=== PATIENT | female | born 1960 | race Caucasian/White ===

== ENCOUNTER 2019-06-15 09:15 | Observation (INO) | payer OTHER ==
[~2019-06-15] VITALS: Ht 157.5 cm; Wt 69.8 kg
[~2019-06-15 09:15] MED LIST: ASPI325 PO; ASPI81CH PO; Ativan0.5 MG PO; ENAL10 PO; FENO160 PO; FISH1000 PO; HYDACE5 PO; HYDCHL25 PO; IBUP800 PO; MELA3 PO; NAPR550 PO; SENN187 PO; Zovirax800 MG PO; [UNRECOGNIZED DRUG - OTHER]
[2019-06-15] MEDS ORDERED: LORA2 PO (10:16)
[2019-06-15] MEDS ORDERED: METOPROLOL SUCC25 MG PO (10:16)
[2019-06-15] MEDS ORDERED: SERT50 PO (10:16)
[2019-06-15] MEDS ORDERED: ATOR40TA PO (10:17)
--- NOTE | 2019-06-15 15:55 | NUR ---
ARRIVED TO ICU, ROOM 2, VIA BED FROM [facility]; PCU STATUS. NO BEDS AVAILABLE IN PCU AND PATIENT REQUIRES CARDIAC MONITORING AND MANAGEMENT OF TR BAND. PCI TO CORONARY VESSEL BY DR. KEANE; TO HAVE FURTHER PROCEDURE IN A FEW WEEKS FOR STENTING OF ANOTHER CORONARY VESSEL. OVERALL STATUS GOOD; SOME MILD CHEST PRESSURE WHICH HAS EASED FROM ER VISIT AND [facility]; CURRENTLY 03/11. ADULT SON AND DAUGHTER VISITING AND VERY SUPPORTIVE. LUNGS CLEAR AND NO OXYGEN INDICATE. TR BAND SITE INTACT WITH CUFF INFLATED WITH 14CC OF AIR; DRESSING DRY/INTACT AND NO S/SX'S OF HEMATOMA. ARMBOARD ALSO IN PLACE TO PREVENT MOVEMENT OF WRIST.
--- NOTE | 2019-06-15 16:10 | NUR ---
TR BAND SITE UNCHANGED; VSS.
--- NOTE | 2019-06-15 16:30 | NUR ---
TR BAND SITE INTACT; GOOD RADIAL PULSE; [place].
--- NOTE | 2019-06-15 16:45 | NUR ---
TR BAND SITE UNCHANGED; WILL BEGIN RELEASING AIR, FROM CUFF, IN ABOUT AN HOUR. DR. KEANE HERE; EXPLAINED PROCEDURE TO PATIENT AND FAMILY AND DISCUSSED POC FOR OTHER CORONARY ARTERY THAT REQUIRES STENTING (IN ABOUT 2 WEEKS). PATIENT CONT. WITH 4/10 CHEST PRESSURE; DR. KEANE AWARE AND INFORMED PATIENT IT IS RELATED TO THE PROCEDURE THAT WAS DONE.
--- NOTE | 2019-06-15 17:30 | NUR ---
T/C TO DR. PATEL TO GET PAIN MED ORDERS. HE GAVE ORDERS. RN INFORMED PHYSICIAN RE: BRADYCARDIA AND HE GAVE PARAMETERS TO FOLLOW IF HTN MEDS. ETC GIVEN. WANTS RN TO CONSULT HOSPITALIST FOR ANYTHING ELSE; STATES DR. KEANE WAS GOING TO PUT IN CONSULT BUT MUST HAVE FORGOTTEN.
--- NOTE | 2019-06-15 18:45 | NUR ---
SUMMARY: DR. EVERETT HERE FOR CONSULT; RN GAVE UPDATE ON STATUS ETC. RN AWAITING PHARMACY TO PROCESS PAIN MED. ORDERS; WILL HAVE NIGHT NURSE MEDICATE.TR BAND SITE UNCHANGED; RN STARTED RELEASING AIR FROM CUFF; 1-CC RELEASED AT 1720 AND THEN 2CC OF AIR RELEASED AROUND 1750; NO S/SX'S OF BLEEDING OR HEMATOMA. WILL HAVE NIGHT RN COMPLETED DEFLATION PROCESS. IVF OF NS CONT. AT 200ML/HR (TOTAL OF 1 LITER).
--- NOTE | 2019-06-15 20:00 | NUR ---
ASSUMED CARE OF PT, REPORT RCV'D FROM TONY CRAIG. PT ALERT AND ORIENTED SITTING IN BED GRIMACING IN PAIN. PT STATES THAT HER CHEST IS STILL HURTING AND THAT HER RIGHT RADIAL SITE AND RAC IV SITE BOTH HURT. PT STATES THAT CP IS UNCHANGED AND THAT SHE IS GOING TO NEED AN ADDITIONAL STENT PLACED IN [address] EVERETT @BEDSIDE DISCUSSING PAIN. UPON INSPECTION RAC IV INFILTRATED. PT TEARY AND REQUESTING PAIN MEDICATION. NEW IV STARTED AND PT MEDICATED PER EMAR WITH GOOD RELIEF. TR BAND ON RIGHT RADIAL SITE, C/D/I, NO HEMATOMA, DISTAL PULSES STRONG, NO COMPLAINT OF N/T. ALL VSS, SEE FULL SHIFT ASSESSMENT.
--- NOTE | 2019-06-16 03:00 | NUR ---
TR BAND OFF. NO HEMATOMA OR OOZING, SOFT NON-TENDER. CLEAR DRESSING AND ARM BOARD IN PLACE.
--- NOTE | 2019-06-16 06:01 | NUR ---
SHIFT SUMMARY NO ACUTE CHANGES OVERNIGHT. PT'S RIGHT RADIAL SITE REMAINS WITHOUT EVIDENCE OF HEMATOMA, PULSES ARE GOOD. PT CONTINUES TO HAVE INTERMITTENT CHEST PAIN THAT SHE DESCRIBES "SQUEEZING" SUBSTERNAL. PT REPORTS THAT THIS IS THE SAME PAIN THAT SHE HAS HAD SINCE COMING BACK FROM [facility], PT DISCUSSED PAIN WITH DR. AGUILA. VSS OVERNIGHT. SEE PREVIOUS SHIFT NOTES. WILL REPORT TO DAYSHIFT NURSE.
--- NOTE | 2019-06-16 07:30 | NUR ---
ASSUMED CARE: PT RESTING QUIETLY AT THIS TIME. DAUGHTER AT BEDSIDE. NO ACUTE NEEDS OR CONCERNS.
[2019-06-16 09:10] LABS: Albumin, Blood 3.3 g/dL (3.4-5.0); Anion Gap 4 mmol/L (6-16); Blood Urea Nitrogen 13 mg/dL (8-24); Bun/Creatinine Ratio 16.8 (12.0-20.0); CO2, Blood 30 mmol/L (21-32); Chloride, Blood 104 mmol/L (98-108); Creatinine, Blood 0.77 mg/dL (0.40-1.00); Glomerular Filtration Rate >60 (60-); Glucose, Blood 104 mg/dL (70-99); Phosphorus, Blood 3.1 mg/dL (2.5-4.9); Potassium, Blood 3.4 mmol/L (3.5-5.5); Sodium, Blood 138 mmol/L (136-145)
--- NOTE | 2019-06-16 10:46 | NUR ---
DR EDMOND AWARE OF PT'S POTASSIUM RESULT. SEE NEW ORDERS. STATES CARDIOLOGY IS TO FILL OUT DISCHARGE ORDERS. CALL TO DR PATEL. DR PATEL CAME TO SEE PT AND STATED THAT PT NEEDED TO WALK TO TEST TO SEE IF SYMPTOMATIC WITH ACTIVITY. 3 LAPS AROUND NURSES STATION WITH NO CP OR DIZZINESS. BACK IN BED NOW, DAUGHTER AT BEDSIDE.
[2019-06-16] MEDS ORDERED: TICA90TA PO (11:28)
--- NOTE | 2019-06-16 12:10 | NUR ---
PT DISCHARGED HOME. IV REMOVED THIS AM WNL. INSTRUCTIONS GIVEN TO PT AND DAUGHTER, DENIED FURTHER QUESTIONS. FOLLOW UP APPOINTMENT SET UP FOR PT AND PT AWARE OF DATE. DENIED FURTHER QUESTIONS OR CONCERNS. TRANSFERRED OUT VIA WHEEL CHAIR BY HOSPITAL STAFF
[2019-07-03] MEDS ORDERED: CLOP75 PO (13:34)
== END 2019-06-16 12:10 | disposition home or self-care (01) ==
LOC: MHTC 09:15 → ICUE 16:24 → MHTC 16:24 → ICUE 16:30
PROVIDERS: Internal Medicine; ADMIT Internal Medicine Cardiovascular Disease
PROC: 4A023N7 Measurement of Cardiac Sampling and Pressure, Left Heart, Percutaneous Approach (ICD-10-PCS; principal; 2019-06-15)
PROC: B211YZZ Fluoroscopy of Multiple Coronary Arteries using Other Contrast (ICD-10-PCS; 2019-06-15)
PROC: 027034Z Dilation of Coronary Artery, One Artery with Drug-eluting Intraluminal Device, Percutaneous Approach (ICD-10-PCS; 2019-06-16)
DX: I25.110 Atherosclerotic heart disease of native coronary artery with unstable angina pectoris (principal); E78.5 Hyperlipidemia, unspecified; F41.9 Anxiety disorder, unspecified; G47.33 Obstructive sleep apnea (adult) (pediatric); E66.9 Obesity, unspecified; E87.6 Hypokalemia; Z85.41 Personal history of malignant neoplasm of cervix uteri; Z85.118 Personal history of other malignant neoplasm of bronchus and lung; Z79.82 Long term (current) use of aspirin; Z79.899 Other long term (current) drug therapy
CPT/HCPCS: 36415; 80069; 85347; 93005; 93010; 93458; 96374; 96376; 99152; 99153; A9270; C1725; C1769; C1874; C1887; C1894; C9600; G0378; J0360; J0461; J1644; J2250; J2270; J3010; J3246; J7030; J7040; Q9967

== ENCOUNTER 2019-07-06 06:44 | Observation (INO) | payer OTHER ==
[~2019-07-06] VITALS: Ht 157.5 cm; Wt 72.0 kg
[~2019-07-06 06:44] MED LIST changes: +ATOR40TA PO; +CLOP75 PO; +LORA2 PO; +METOPROLOL SUCC25 MG PO; +SERT50 PO; +TICA90TA PO
--- NOTE | 2019-07-06 09:30 | NUR ---
PT BROUGHT BACK TO RECOVERY ROOM VIA RECLINER. REPORT FROM TONY NOEL. LARGE HEMATOMA NOTED TO RFA SPREADING TOWARDS ELBOW. SECOND TR BAND APPLIED, MANUAL PRESSURE AND MASSAGE DONE BY DR. ARCE. ICE APPLIED TO RFA WELL FOR 15 MINUTES. PT WAS MEDICATED BY TONY NOEL DURING THIS TIME FOR PAIN. SEE MAR FOR DOCUMENTATION. VSS. AGGRASTAT DRIP DISCONTINUED. US ORDERED TO VERIFY THAT HEMATOMA HAS DISCONTINUED PER DR. ARCE. PLAN IS FOR PT TO BE OBSERVED OVER NIGHT. WILL CONTINUE TO MONITOR.
--- NOTE | 2019-07-06 10:10 | NUR ---
RFA RE-EVALUATED PRIOR TO PT BEING TRANSFERED TO PCU. TWO TR BANDS REMAIN IN PLACE WITH 14-15 CC AIR IN BOTH. SITES ARE NOT OOZING OR ACTIVELY BLEEDING. RFA SOFT, MINIMAL TENDERNESS, HOWEVER, PT REPORTS THAT "IT FEELS MUCH BETTER THAN BEFORE" REPORTS PAIN LEVEL DECREASED FROM 10/10 TO 6/10.
--- NOTE | 2019-07-06 10:30 | NUR ---
ASSUMED CARE PT ALERT AND ORIENTED. VS STABLE. HR SHOWS [place] 40-60. BP STABLE. PT DENIES PAIN AT THIS TIME. [address] TO RIGHT RADIAL SITE. HEMATOMA NOTED FROM WRIST TO ELBOW. PT STATES IT LOOKS BETTER THAN IT DID IN THE [facility]ART CENTER. 14CC OF AIR IN EACH BAND. WILL CONTINUE TO MONITOR CLOSELY.
--- NOTE | 2019-07-06 18:08 | NUR ---
SHIFT SUMMARY BOTH TR BANDS HAVE BEEN REMOVED. HEMATOMA IS UNCHANGED SINCE INITIAL ASSESSMENT. VS REMAIN STABLE. PT COMPLAINED OF PAIN IN HER RIGHT FOREARM THAT WAS RELIEVED WITH MEDICATION ADMINISTRATION. PT ABLE TO AMBULATE TO BATHROOM NEEDED. PT EDUCATED ON RIGHT ARM RESTRICTIONS. WILL CONTINUE TO MONITOR AND REPORT TO ONCOMING RN. CALL LIGHT IN REACH.
--- NOTE | 2019-07-06 23:22 | NUR ---
Assumed care of pt at approx 1900 from TONY Larios. Pt with VSS. No apparent sign of distress, breathing easy and unlabored. Hematoma present on RFA, soft, painful. No active swelling or bleed noted. Pt alert and oriented, answers questions appropriately, able to make needs known. Pt denies chest pain, pressure, no SOB. See shift assessment for detailed systems assessment.
--- NOTE | 2019-07-07 04:32 | NUR ---
Shift Summary Pt with no acute changes this shift. R arm site remains with hematoma, access site clear from blood or new hematoma. VSS. denies chest pain or pressure. compliant with R arm restrictions. Pt able to make needs known, independant in room, uses call light appropriately. Alert and oriented. No changes on tele. Pt with anticipated D/C this AM. Will continue to monitor and provide care per orders until day RN assumes care.
--- NOTE | 2019-07-07 09:10 | NUR ---
pt laying in bed asking for pain med for her right fa hematomoa, a/ox3, pleasant and cooperative with care, follows commands well, lungs are clear t/o, resp even and unlabored, is currently on r/a, hrr, tele in place runing sr in the 70's, no edema noted, iv to right hand site is clear and patent, btx4, abd flat soft nontender, reports voiding without diff, skin c/w/d except right fa hematoma is brused and swollen, danette galaviz, call light in reach.
--- NOTE | 2019-07-07 10:00 | NUR ---
pt has been discharged to home, instructions given by charge nurse, iv removed intact, pt verbalized understanding of instructions. arm board in place, left via ambulation with her daughter and intake specialist. new meds called in for her.
== END 2019-07-07 09:56 | disposition home or self-care (01) ==
LOC: MHTC 06:44 → PCU 09:43 → MHTC 15:02 → PCU 15:02
PROVIDERS: ADMIT Internal Medicine Cardiovascular Disease
DX: I25.10 Atherosclerotic heart disease of native coronary artery without angina pectoris (principal); I44.7 Left bundle-branch block, unspecified; I10 Essential (primary) hypertension; M79.89 Other specified soft tissue disorders; E78.5 Hyperlipidemia, unspecified; G47.33 Obstructive sleep apnea (adult) (pediatric); F41.9 Anxiety disorder, unspecified; E66.9 Obesity, unspecified; Z88.1 Allergy status to other antibiotic agents; Z88.5 Allergy status to narcotic agent; Z91.041 Radiographic dye allergy status; Z88.8 Allergy status to other drugs, medicaments and biological substances; Z88.2 Allergy status to sulfonamides; Z68.28 Body mass index [BMI] 28.0-28.9, adult
CPT/HCPCS: 76882; 96374; 96376; 99152; 99153; C1725; C1769; C1874; C1887; C1894; C9600; G0378; J1644; J2250; J3010; J3246; J7030; J7512; Q0163; Q9967

== ENCOUNTER → 2021-01-16 | Outpatient (CLI) | payer OTHER | END | disposition home or self-care (01) | LOC: LAB SHORT 18:10 → PLD 18:10 | DX: R10.32 Left lower quadrant pain (principal) | CPT/HCPCS: 82565 ==